=== PATIENT | female | born 1945 | race Caucasian/White ===

== ENCOUNTER → 2016-09-12 | Outpatient (CLI) | payer OTHER ==
[~2016-09-12] MED LIST: GADAVIST IV PRN
--- NOTE | 2016-09-12 13:24 | DIAGNOSTIC IMAGING REPORT ---
MRI OF THE BRAIN WITHOUT AND WITH IV CONTRAST CLINICAL HISTORY: MENINGIOMA COMPARISON STUDY: CT scan of the paranasal sinuses dated 02/11/2016 TECHNIQUE: MRI of the brain was performed from the vertex to the skull base utilizing various T1 and T2 weighted sequences. Following the IV administration of 10 mL of Gadavist contrast, additional enhanced images were obtained. FINDINGS: Sagittal T1, axial diffusion, proton density and T2 weighted axial, coronal FLAIR, and pre and post axial T1-weighted images were acquired. These were supplemented with post gadolinium coronal T1 weighted images. There is a 12 mm enhancing extra-axial mass at the level of the left cerebellopontine angle cistern. This remains unchanged in size from the prior CT scan. On the CT scan, this lesion was partially calcified. The signal characteristics and appearance of the lesion are highly suggestive of a meningioma. Axial diffusion-weighted images reveal no evidence of acute or subacute infarction. There is mild ventricular dilatation, similar to the preceding examination. Proton density T2-weighted and FLAIR images reveal scattered foci of increased T2 signal within the white matter, likely on a small vessel basis. There are no abnormal flow voids. No additional enhancing masses are visualized. There is a sphenoid sinus air-fluid level. There is opacification several ethmoid air cells. IMPRESSION: 1. 13 mm intensely enhancing extra-axial mass in the region of the left cerebellopontine angle cistern. The findings are most consistent with a meningioma. This remains unchanged in size from the sinus CT scan performed January 2016 2. No evidence of acute or subacute infarction 3. Multiple foci of increased T2 signal within the white matter, likely on a small vessel basis 4. Mild ventricular dilatation Electronically signed by: Mateo Garcia M.D. 09/12/2016 1:23 PM Dictated Date/Time: 09/12/2016 1:17 PM
== END | disposition home or self-care (01) ==
LOC: C.MRIBC 12:28
PROVIDERS: ATTEND Psychiatry & Neurology Neurology
DX: D32.9 Benign neoplasm of meninges, unspecified (principal)

== ENCOUNTER → 2017-04-29 | Outpatient (CLI) | payer OTHER ==
--- NOTE | 2017-04-29 16:02 | MAMMOGRAPHY REPORT ---
BILATERAL DIGITAL SCREENING MAMMOGRAM TOMOSYNTHESIS WITH CAD: 04/29/2017 CLINICAL HISTORY: Routine screening. Patient has no complaints. TECHNIQUE: Breast tomosynthesis in addition to standard 2D mammography was performed. Current study was also evaluated with a Computer Aided Detection (CAD) system. COMPARISON: Comparison is made to exams dated: 03/25/2016 mammogram, 03/21/2015 mammogram, 03/16/2014 mammogram - [facility], and 04/09/2010 mammogram. BREAST COMPOSITION: There are scattered areas of fibroglandular density in both breasts. FINDINGS: No suspicious masses, calcifications, or areas of architectural distortion are noted in ei ther breast. There has been no significant interval change compared to prior exams. Scattered bilater al benign-appearing calcifications are not significantly changed. IMPRESSION: ACR BI-RADS CATEGORY 2: BENIGN There is no mammographic evidence of malignancy. A 1 year screening mammogram is recommended. The pa tient will receive written notification of the results. Approximately 10% of breast cancers are not detected with mammography. A negative mammographic report should not delay biopsy if a clinically suggestive mass is present. Roya King M.D. /:04/29/2017 15:31:24 [employer] Pilot: Dalila Veronica, [facility] letter sent: Normal 1/2 BI-RADS Code: ACR BI-RADS Category 2: Benign
== END | disposition home or self-care (01) ==
LOC: C.MAMM 15:08
PROVIDERS: ATTEND Family Medicine
DX: Z12.31 Encounter for screening mammogram for malignant neoplasm of breast (principal)

== ENCOUNTER → 2017-05-07 | Outpatient (CLI) | payer OTHER ==
--- NOTE | 2017-05-07 12:07 | DIAGNOSTIC IMAGING REPORT ---
L KNEE 1 OR 2 VIEWS CLINICAL HISTORY: Left knee pain COMPARISON STUDY: No previous studies for comparison. FINDINGS: There are moderate osteoarthritic changes involving the medial joint compartment, lateral joint compartment, patellofemoral joint. There is a small joint effusion. No acute fractures are visualized. No destructive lesions are evident. IMPRESSION: 1. No acute fractures 2. Moderate osteoarthritic change. 3. Small joint effusion Electronically signed by: Mateo Garcia M.D. 05/07/2017 12:05 PM Dictated Date/Time: 05/07/2017 12:05 PM
--- NOTE | 2017-05-07 12:08 | DIAGNOSTIC IMAGING REPORT ---
R KNEE 1 OR 2 VIEWS CLINICAL HISTORY: Right knee pain COMPARISON STUDY: No previous studies for comparison. FINDINGS: No acute fractures are visualized. No destructive lesions are evident. There are moderate 3 compartment degenerative changes. There is a small suprapatellar joint effusion. IMPRESSION: 1. No acute fractures 2. Moderate 3 compartment osteoarthritis 3. Small joint effusion Electronically signed by: Mateo Garcia M.D. 05/07/2017 12:06 PM Dictated Date/Time: 05/07/2017 12:06 PM
== END | disposition home or self-care (01) ==
LOC: C.RDSM 10:25
PROVIDERS: ATTEND Family Medicine
DX: M17.11 Unilateral primary osteoarthritis, right knee (principal); M25.562 Pain in left knee